=== PATIENT | female | born 1965 | race Caucasian/White ===

== ENCOUNTER → 2022-04-02 | Outpatient (CLI) | payer OTHER ==
--- NOTE | 2022-04-02 10:15 | XR ---
EXAMINATION TYPE: XR mandible complete DATE OF EXAM: 04/02/2022 COMPARISON: NONE HISTORY: Left-sided submandibular swelling and pain, assess for calculus. TECHNIQUE: Complete mandible with both oblique projections along with open-mouth and closed mouth cor onal projection along with lateral and Cooper views. FINDINGS: No definitive suspicious calcification or sialolith seen. There is dental implant in the le ft lateral molar tooth. There are several cavitary fillings in the maxilla and mandible. Overlying so ft tissue is unremarkable. Mandible appears intact. Temporal mandibular joints are symmetric. IMPRESSION: As above.
== END | disposition home or self-care (01) ==
LOC: RADXRMAIN 09:17
PROVIDERS: ATTEND Otolaryngology
DX: K11.1 Hypertrophy of salivary gland (principal)
CPT/HCPCS: 70110